=== PATIENT | female | born 1960 | race Caucasian/White ===

== ENCOUNTER 2017-03-03 09:23 | Emergency (ER) | payer OTHER ==
[~2017-03-03] VITALS: Ht 172.7 cm; Wt 77.8 kg
[2017-03-03 10:44] LABS: HEMATOCRIT 40.7 % (34.6-47.8); HEMOGLOBIN 13.9 g/dL (11.7-16.4); WHITE BLOOD COUNT 5.3 x10^3/uL (3.4-10)
[2017-03-03 10:47] LABS: BLOOD UREA NITROGEN 15 mg/dL (7-18)
[2017-03-03 10:52] LABS: ASPARTATE AMINO TRANSFERASE 19 U/L (15-37); IS PT STATUS REG ER OR PRE ER? YES
[2017-03-03 11:35] VITALS: BP 135/87
== END 2017-03-03 11:37 | disposition home or self-care (01) ==
LOC: ED 11:31
DX: J20.9 Acute bronchitis, unspecified (principal); I10 Essential (primary) hypertension
CPT/HCPCS: 36415; 71010; 80053; 83605; 84484; 85025; 87040; 99285